=== PATIENT | male | born 1955 | race Caucasian/White ===

== ENCOUNTER 2017-02-01 10:47 | Emergency (ER) | payer BC ==
[~2017-02-01] VITALS: Ht 233.7 cm; Wt 84.5 kg
[2017-02-01 10:58] VITALS: Ht 233.7 cm; Wt 84.5 kg
[2017-02-01] MEDS ORDERED: AMOX1TAB10 PO (11:52)
[2017-02-01] MEDS ORDERED: PRED20TA PO (11:52)
[2017-02-01] MEDS ORDERED: HYDR-906 PO (11:52)
[2017-02-01] MEDS ORDERED: HYDROCODONE/APAP (5/325) TAB PO ONE (12:00)
--- NOTE | 2017-02-01 12:49 | ERD ---
ER Documentation Chief Complaint Chief Complaint swollen right side of throat x2 days HPI 61-year-old male presents emergency room with right lateral neck pain and swelling that started about 2-3 days ago. The patient's describes as sharp and achy pain as moderate and radiates to his ear and his head. He has no other associated symptoms including nasal congestion, cough, sore throat, dental pain. He denies fevers or chills. He denies trouble swallowing. ROS All systems reviewed and are negative except as per history of present illness. Medications Home Meds Active Scripts Hydrocodone/Acetaminophen ([place] 5-325 Tablet) 1 Each Tablet, 1 TAB PO Q6H Y for PAIN, #7 TAB Prov:MURTAZA YING PA-C 02/01/17 Prednisone* (Prednisone*) 20 Mg Tab, 40 MG PO DAILY for 5 Days, TAB Prov:MURTAZA YING PA-C 02/01/17 Amoxicillin/Potassium Clav (Amox-Clav 875-125 mg Tablet) 875-125 mg Tab, 1 TAB PO BID for 7 Days, #14 TAB Prov:MURTAZA YING PA-C 02/01/17 PMhx/Soc History of Surgery: No Anesthesia Reaction: No Hx Neurological Disorder: No Hx Respiratory Disorders: No Hx Cardiac Disorders: Yes Hx Psychiatric Problems: No Hx Miscellaneous Medical Probl: No Hx Alcohol Use: No Hx Substance Use: No Hx Tobacco Use: No Smoking Status: Never smoker Physical Exam Vitals Vital Signs Date Time Temp Pulse Resp B/P Pulse Ox O2 Delivery O2 Flow Rate FiO2 02/01/17 10:58 98.8 81 20 131/71 99 Physical Exam General: Well-developed, well-nourished. The patient appears in no acute distress. HEENT: Head is normocephalic, atraumatic. No scleral icterus. Right anterolateral neck has swelling, and is tender to palpation, there is no fluctuance. Lymph node is mobile. TMs are normal, oropharynx is clear, there is poor dentition but no dental abscess seen. \ Neck: Supple. Nontender. no Meningismus Lungs: Clear to auscultation. Normal air movement. Heart: Regular rate and rhythm. S1 and S2 are normal. No murmurs, gallops, or rubs. Abdomen: Nondistended. Extremities: No clubbing or cyanosis. Moving extremities x 4. No weakness. Neurologic: Alert and oriented 3. No focal deficits. Normal speech and gait. Skin: Normal turgor. No rash or lesions. Results 24 hrs Current Medications Medications (Trade) Dose Ordered Sig/Cassy Route PRN Reason Start Time Stop Time Status Last Admin Dose Admin Acetaminophen/ Hydrocodone Bitart ([place] (5/325)) 1 tab ONCE ONCE PO 02/01/17 12:00 02/01/17 12:01 DC 02/01/17 12:04 Procedures/MDM 61-year-old male presents with right-sided neck swelling, most consistent with lymphangitis. Differentials include viral versus bacterial infection, versus abscess. Suspicion at this time for a mass is low given the acute presentation , and tenderness. There is no evidence of an abscess, Saran's angina, submandibular infection. HEENT examination otherwise is normal, no evidence of otitis media, meningitis, dental infection, dental abscess, strep pharyngitis. Patient will be treated with prednisone, Augmentin as well as [place] for pain control, and was advised to recheck with the primary care doctor 1-2 days. If any worsening symptoms occur he is to return to the emergency room. If the swelling does not resolve the patient was advised that he will need to follow- up with his primary care doctor for sonographic imaging of the neck. Departure Diagnosis: Primary Impression: Lymphangitis Condition: Good Patient Instructions: MURTAZA Jose PA-C Feb 01, 2017 12:49
== END 2017-02-01 14:36 | disposition home or self-care (01) ==
LOC: E/R 10:47 → FTE 14:36
DX: I89.1 Lymphangitis (principal)
CPT/HCPCS: 99284; Z7610

== ENCOUNTER 2018-06-14 14:13 | Inpatient (IN) | payer BC ==
[~2018-06-14] VITALS: Ht 167.6 cm; Wt 86.6 kg
[~2018-06-14 14:13] MED LIST: AMOX1TAB10 PO; HYDR-4011 PO; PRED20TA PO
--- NOTE | 2018-06-14 18:32 | ERD ---
ER Documentation Chief Complaint Chief Complaint Complains of flank Hx of Kidney stones HPI 62-year-old male, history of diabetes, hypertension, hyperlipidemia and ureterolithiasis presents to the ED complaining of left flank pain. He was in his usual state of health until 2 weeks ago when he developed painless hematuria and last night was awoken at 3 AM with severe, sharp, left flank pain creating to the left lower quadrant. Pain is unrelieved by ibuprofen. No exacerbating factors. Nausea no vomiting, diarrhea or constipation. No chest pain, palpitations, shortness of breath, fevers or chills. ROS All systems reviewed and are negative except as per history of present illness. Medications Home Meds Active Scripts Hydrocodone/Acetaminophen ([place] 5-325 Tablet) 1 Each Tablet, 1 EACH PO Q6 for pain, #20 TAB 0 Refills Prov:LINDA RG MD 06/15/18 Levofloxacin* (Levaquin*) 500 Mg Tablet, 500 MG PO DAILY for UTI for 7 Days, #7 TAB Prov:LINDA RG MD 06/15/18 Levofloxacin* (Levaquin*) 500 Mg Tablet, 500 MG PO DAILY for UTI and kidney stones for 7 Days, #7 TAB Prov:LINDA RG MD 06/15/18 Reported Medications Simvastatin (Simvastatin) 20 Mg Tablet, 20 MG PO QHS, #30 TAB 06/14/18 [Cholesterol] No Conflict Check, 1 TAB PO QHS 06/14/18 Aspirin* (Aspirin* EC) 81 Mg Tablet.dr, 81 MG PO DAILY, TAB 06/14/18 Benazepril Hcl* (Benazepril Hcl*) 20 Mg Tablet, 20 MG PO DAILY, #30 TAB 06/14/18 Sitagliptin* (Januvia*) 50 Mg Tablet, 50 MG PO DAILY, #30 TAB 06/14/18 Metformin Hcl* (Metformin Hcl*) 1,000 Mg Tablet, 1000 MG PO WITH BREAKFAST DINNE, #60 TAB 06/14/18 Discontinued Scripts Hydrocodone/Acetaminophen ([place] 5-325 Tablet) 1 Each Tablet, 1 TAB PO Q6H PRN for PAIN, #7 TAB Prov:MURTAZA YING PA-C 02/01/17 Prednisone* (Prednisone*) 20 Mg Tab, 40 MG PO DAILY for 5 Days, TAB Prov:MURTAZA YING PA-C 02/01/17 Amoxicillin/Potassium Clav (Amox-Clav 875-125 mg Tablet) 875-125 mg Tab, 1 TAB PO BID for 7 Days, #14 TAB Prov:MURTAZA YING PA-C 02/01/17 Allergies Allergies: Coded Allergies: No Known Allergy (Unverified , 06/14/18) PMhx/Soc Reviewed in chart. As per HPI. History of Surgery: Yes (EC Lithotripsy) Anesthesia Reaction: No Hx Neurological Disorder: No Hx Respiratory Disorders: No Hx Cardiac Disorders: Yes (Hypertension) Hx Psychiatric Problems: No Hx Miscellaneous Medical Probl: Yes (Nephrolithiasis, ureterolithiasis, hyperlipidemia, diabetes) Hx Alcohol Use: No Hx Substance Use: No Hx Tobacco Use: No FmHx Father: [place] at 57. No family history of cancer. Physical Exam Vitals Vital Signs Date Temp Pulse Resp B/P (MAP) Pulse Ox O2 O2 Flow FiO2 Time Delivery Rate 06/14/18 87 16 127/87 100 Room Air 19:30 (100) 06/14/18 97.8 74 20 145/79 98 14:17 (101) Physical Exam Const: Moderate distress due to pain. Head: Atraumatic Eyes: Normal Conjunctiva ENT: Normal External Ears, Nose and Mouth. Neck: Full range of motion. Nontender. No lymphadenopathy. Resp: Breath sounds are equal and clear to auscultation bilaterally. No rales rhonchi or wheezes Cardio: Regular rate and rhythm, no murmurs Abd: Soft, non tender, non distended. Normal pulsations. Normal bowel sounds Skin: No petechiae or rashes Back: No midline or CVA tenderness. Ext: No cyanosis, or edema. Pulses 4+ in all extremities. Neur: Awake and alert. No focal deficit. Psych: Normal Mood and Affect Result Diagram: 06/14/18190606/14/181906 Results 24 hrs Laboratory Tests Test 06/14/18 19:07 White Blood Count 10.8 10^3/ul Red Blood Count 5.77 10^6/ul Hemoglobin 15.2 g/dl Hematocrit 46.5 % Mean Corpuscular Volume 80.6 fl Mean Corpuscular Hemoglobin 26.3 pg Mean Corpuscular Hemoglobin Concent 32.7 g/dl Red Cell Distribution Width 14.1 % Platelet Count 239 10^3/UL Mean Platelet Volume 10.2 fl Immature Granulocytes % 0.500 % Neutrophils % 68.6 % Lymphocytes % 19.4 % Monocytes % 9.2 % Eosinophils % 1.9 % Basophils % 0.4 % Nucleated Red Blood Cells % 0.0 /100WBC Immature Granulocytes # 0.050 10^3/ul Neutrophils # 7.4 10^3/ul Lymphocytes # 2.1 10^3/ul Monocytes # 1.0 10^3/ul Eosinophils # 0.2 10^3/ul Basophils # 0.0 10^3/ul Nucleated Red Blood Cells # 0.0 10^3/ul Urine Color YELLOW Urine Clarity CLEAR Urine pH 5.0 Urine Specific [place] 1.020 Urine Ketones TRACE mg/dL Urine Nitrite NEGATIVE mg/dL Urine Bilirubin NEGATIVE mg/dL Urine Urobilinogen NEGATIVE mg/dL Urine Leukocyte Esterase NEGATIVE Elias/ul Urine Microscopic RBC 16 /HPF Urine Microscopic WBC 1 /HPF Urine Hemoglobin 2+ mg/dL Urine Glucose NEGATIVE mg/dL Urine Total Protein NEGATIVE mg/dl Sodium Level 142 mmol/L Potassium Level 4.4 mmol/L Chloride Level 103 mmol/L Carbon Dioxide Level 22 mmol/L Anion Gap 17 Blood Urea Nitrogen 27 mg/dl Creatinine 1.55 mg/dl Est Glomerular Filtrat Rate mL/min 46 mL/min Glucose Level 122 mg/dl Calcium Level 9.4 mg/dl Current Medications Medications Dose Sig/Cassy Start Time Status Last (Trade) Ordered Route PRN Stop Time Admin Dose Reason Admin Sodium 500 ml @ Q1H STAT 06/14/18 DC 06/14/18 Chloride 500 mls/hr IV 18:37 19:18 06/14/18 19:36 Morphine 4 mg ONCE STAT 06/14/18 DC 06/14/18 Sulfate IV 18:37 19:17 (morphine) 06/14/18 18:42 Ondansetron 4 mg ONCE STAT 06/14/18 DC 06/14/18 HCl (Zofran IV 18:37 19:18 Inj) 06/14/18 18:42 Ketorolac 10 mg ONCE STAT 06/14/18 DC 06/14/18 Tromethamine IV 18:37 19:18 (Toradol) 06/14/18 18:42 Tamsulosin 0.4 mg ONCE ONCE 06/14/18 DC 06/14/18 HCl PO 19:00 19:36 (Flomax) 06/14/18 19:01 Ondansetron 4 mg BRIDGE ORDER 06/14/18 DC HCl (Zofran PRN IV 20:30 Inj) NAUSEA/VOMITI 06/15/18 13:32 NG 650 mg ER BRIDGE 06/14/18 DC Acetaminophen PRN PO 20:30 (Tylenol .MILD PAIN 06/15/18 13:32 Tab) 1-3 OR TEMP Procedures/MDM DOCUMENTS REVIEWED: ED nurse, prior records IMAGING: PROCEDURE: CT abdomen and pelvis without contrast. CLINICAL INDICATION: Left flank pain TECHNIQUE: CT scan of the abdomen and pelvis without contrast was performed on a multi-slice CT scanner. The patient was scanned without intravenous contrast. 3-D sagittal and coronal reformatted images were obtained from the axial source images. CTDI: 18.05 and DLP: 1224.05 One or more of the following dose reduction techniques were used: Automated exposure control. Adjustment of the mA and/or kV according to patient's size. Use of iterative reconstruction technique. DICOM images are available. COMPARISON: None. FINDINGS: Incidental images through the lung bases reveal no evidence of focal basilar consolidation or pleural effusion. The liver is somewhat low in attenuation suggesting hepatic steatosis. There is no evidence of intrahepatic biliary dilatation. The spleen, gallbladder, pancreas and adrenal glands are unremarkable There is severe left hydronephrosis secondary to a large calculus in the proximal left ureter at the level of L4. This calculus measures 7.4 mm TR by 12.8 mm AP by 18.5 mm CC. Vascular calcifications are seen on the right. No additional renal calculi are identified. There are exophytic structure is emanating from the anterior and posterior inferior left kidney that likely represent renal cysts measuring 2.8 cm and 3.6 cm. A similar exophytic lesion is seen emanating from the posterior mid right kidney measuring 3.3 cm. No significant retroperitoneal adenopathy is identified. Atherosclerotic changes are seen in the abdominal aorta without evidence of aneurysm. The stomach is distended with fluid and debris. There is no evidence of small bowel obstruction. A normal appendix is identified. There are multiple colonic diverticula without evidence of diverticulitis.. No free fluid or free intraperitoneal air is identified. Evaluation of the osseous structures reveals no acute change. IMPRESSION: 1. There is severe left hydronephrosis secondary to a large calculus in the proximal left ureter at the level of L4. This calculus measures 7.4 mm TR by 12.8 mm AP by 18.5 mm CC 2. There are exophytic structure is emanating from the anterior and posterior inferior left kidney that likely represent renal cysts measuring 2.8 cm and 3.6 cm. A similar exophytic lesion is seen emanating from the posterior mid right kidney measuring 3.3 cm. 3. There are multiple colonic diverticula without evidence of diverticulitis. 4. Hepatic steatosis. RPTAT:AAJJ Josh Rivera Physician Date Time Electronically viewed and signed by Josh Rivera Physician on 06/14/2018 19:22 [facility]-year-old male, history of diabetes, hypertension, hyperlipidemia and ureterolithiasis presents to the ED for evaluation of hematuria and left flank pain. CBC unremarkable for leukocytosis, anemia or thrombocytosis. Chemistry reveal elevated Bun/Cr consistent with renal insufficiency but no electrolyte abnormalities and hyperglycemia with anion gap acidosis. U/A positive for hematuria but no pyuria or infection. CT findings as above reveal an impressively large left ureteral calculus at L4 level with severe obstructive uropathy and hydronephrosis. Pain controlled with IV opiates. Flomax given. No UTI or pyelonephritis and antibiotics deferred. Urology consul tori. Admit to med/surg. Counseled patient and family regarding diagnostic workup, diagnosis and need for admission. CALLS/CONSULTS: Dr Pierson will consult. CARE TRANSFERRED: Time:2029. Dr Pham. Departure Diagnosis: Primary Impression: Acute left flank pain Additional Impressions: Ureterolithiasis Obstructed, uropathy Hydronephrosis, left Renal colic on left side Diabetes mellitus type 2 in obese Condition: Serious EVA CLARK MD Jun 14, 2018 18:32
[2018-06-14] MEDS ORDERED: ONDANSETRON 4 MG INJ IV STA (18:37)
[2018-06-14] MEDS ORDERED: SOD CHLORIDE 0.9% 500 ML IV STA (18:37)
[2018-06-14] MEDS ORDERED: KETOROLAC 15 MG INJ IV STA (18:37)
[2018-06-14] MEDS ORDERED: morphine 4 MG/ML VIAL IV STA (18:37)
[2018-06-14] MEDS ORDERED: TAMSULOSIN (SR) 0.4 MG CAP PO ONE (19:00)
[2018-06-14] MEDS ORDERED: ASPI-817 PO (20:02)
[2018-06-14] MEDS ORDERED: METF100010 PO (20:02)
[2018-06-14] MEDS ORDERED: SITA50TA2 PO (20:02)
[2018-06-14] MEDS ORDERED: BENA20TA4 PO (20:02)
[2018-06-14] MEDS ORDERED: CHOLESTEROL PO (20:03)
[2018-06-14] MEDS ORDERED: ONDANSETRON 4 MG INJ IV PRN ×2 (20:30→23:00)
[2018-06-14] MEDS ORDERED: ACETAMINOPHEN 325 MG TAB PO PRN (20:30)
[2018-06-14 22:26] VITALS: BP 137/73; PULSE 77; RESP 18
[2018-06-14] MEDS ORDERED: SIMV20TA2 PO (22:37)
[2018-06-14] MEDS ORDERED: CEFTRIAXONE 1 GM/50 ML (PMX) 50 ML IVPB SCH (23:00)
[2018-06-14] MEDS ORDERED: morphine 2 MG INJ IV PRN (23:00)
[2018-06-14] MEDS ORDERED: ZOLPIDEM 5 MG TAB PO PRN (23:00)
[2018-06-14] MEDS ORDERED: morphine 4 MG/ML VIAL IV PRN (23:00)
[2018-06-14 23:03] VITALS: Ht 167.6 cm; Wt 86.6 kg
[2018-06-14] MEDS ORDERED: GLUCOSE GEL 15 GRAM TUBE PO PRN ×2 (23:30)
[2018-06-14] MEDS ORDERED: GLUCOSE GEL 15 GRAM TUBE BUCCAL PRN (23:30)
[2018-06-14] MEDS ORDERED: GLUCAGON 1 MG INJ IM PRN (23:30)
[2018-06-14] MEDS ORDERED: DEXTROSE 50% 50 ML SYRINGE IV PRN ×2 (23:30)
[2018-06-15] VITALS (17 sets, daily range): BP systolic 108–148; BP diastolic 57–91; PULSE 66–83; RESP 12–23
[2018-06-15] MEDS: SOD CHLORIDE 0.9% 1,000 ML IV SCH ×3 (00:19→21:22)
[2018-06-15] MEDS: INSULIN ASPART [NOVOLOG] 3 ML PEN SC SCH ×4 (00:50→17:47)
[2018-06-15] MEDS ORDERED: ACCU-CHEK XX SCH (02:00)
--- NOTE | 2018-06-15 08:54 | CONS ---
Assessment/Plan Assessment/Plan Hospital Course (Demo Recall) 62-year-old male, history of diabetes, hypertension, hyperlipidemia and ureterolithiasis presented to the ED complaining of left flank pain. He was in his usual state of health until 2 weeks ago when he developed painless hematuria and last night was awoken at 3 AM with severe, sharp, left flank pain radiating to the left lower quadrant. Pain was unrelieved by ibuprofen. No exacerbating factors. He had nausea but no vomiting, diarrhea or constipation. No chest pain, palpitations, shortness of breath, fevers or chills. He has had extracorporeal shockwave lithotripsy to a left renal stone about 10 years ago. And he states he did pass multiple small stones before and he has given them to his primary care doctor for analysis but he does not know the results. On the physical exam he does have left flank tenderness and left side of the abdomen is tender. I did review the CT scan with him and his son who was at his bedside I did show them the pictures and discussed with them the plan which would be to do a cystoscopy and insert a left ureteral JJ stent. And at a later date he will need either a ureteroscopy with laser lithotripsy or extracorporeal shockwave lithotripsy depending on the location of the stone at that time. The patient as well as his son did understand the procedure and they are agreeable to proceed. Consultation Date/Type/Reason Admit Date/Time Jun 14, 2018 at 20:31 Date of Consultation: Jun 15, 2018 Type of Consult Urology Reason for Consultation Left upper ureteral stone Requesting Provider: NADIA JAY MD Date/Time of Note DATE: 06/15/18 TIME: 08:45 Hx of Present Illness 62-year-old male, history of diabetes, hypertension, hyperlipidemia and ureterolithiasis presented to the ED complaining of left flank pain. He was in his usual state of health until 2 weeks ago when he developed painless hematuria and last night was awoken at 3 AM with severe, sharp, left flank pain radiating to the left lower quadrant. Pain was unrelieved by ibuprofen. No exacerbating factors. He had nausea but no vomiting, diarrhea or constipation. No chest pain, palpitations, shortness of breath, fevers or chills. He has had extracorporeal shockwave lithotripsy to a left renal stone about 10 years ago. And he states he did pass multiple small stones before and he has given them to his primary care doctor for analysis but he does not know the results. Constitutional: no complaints Eyes: no complaints ENT: no complaints Respiratory: no complaints; No shortness of breath Cardiovascular: no complaints Gastrointestinal: pain (Left side of abdomen) Genitourinary: flank pain (Left side), hematuria Musculoskeletal: no complaints Skin: no complaints Neurologic: no complaints Endocrine: no complaints Lymphatic: no complaints Immunologic: no complaints Past Medical History Medical History: diabetes, high cholesterol, hypertension, other (Kidney stones) Home Meds Reported Medications Simvastatin (Simvastatin) 20 Mg Tablet, 20 MG PO QHS, #30 TAB 06/14/18 [Cholesterol] No Conflict Check, 1 TAB PO QHS 06/14/18 Aspirin* (Aspirin* EC) 81 Mg Tablet.dr, 81 MG PO DAILY, TAB 06/14/18 Benazepril Hcl* (Benazepril Hcl*) 20 Mg Tablet, 20 MG PO DAILY, #30 TAB 06/14/18 Sitagliptin* (Januvia*) 50 Mg Tablet, 50 MG PO DAILY, #30 TAB 06/14/18 Metformin Hcl* (Metformin Hcl*) 1,000 Mg Tablet, 1000 MG PO WITH BREAKFAST DINNE, #60 TAB 06/14/18 Discontinued Scripts Hydrocodone/Acetaminophen ([place] 5-325 Tablet) 1 Each Tablet, 1 TAB PO Q6H PRN for PAIN, #7 TAB Prov:MURTAZA YING PA-C 02/01/17 Prednisone* (Prednisone*) 20 Mg Tab, 40 MG PO DAILY for 5 Days, TAB Prov:MURTAZA YING PA-C 02/01/17 Amoxicillin/Potassium Clav (Amox-Clav 875-125 mg Tablet) 875-125 mg Tab, 1 TAB PO BID for 7 Days, #14 TAB Prov:MURTAZA YING PA-C 02/01/17 Medications Current Medications Ondansetron HCl (Zofran Inj) 4 mg BRIDGE ORDER PRN IV NAUSEA/VOMITING; Start 06/14/18 at 20:30; Stop 06/15/18 at 20:29 Acetaminophen (Tylenol Tab) 650 mg ER BRIDGE PRN PO .MILD PAIN 1-3 OR TEMP; Start 06/14/18 at 20:30; Stop 06/15/18 at 20:29 Sodium Chloride 1,000 ml @ 100 mls/hr Q10H IV Last administered on 3/12/19at 00:19; Admin Dose 100 MLS/HR; Start 06/14/18 at 23:00 Morphine Sulfate (morphine) 2 mg Q4H PRN IV PAIN LEVEL 4-7; Start 06/14/18 at 23:00 Morphine Sulfate (morphine) 4 mg Q4H PRN IV SEVERE PAIN LEVEL 7-10 Last administered on 06/15/18at 07:41; Admin Dose 4 MG; Start 06/14/18 at 23:00 Ondansetron HCl (Zofran Inj) 4 mg Q4H PRN IV NAUSEA AND/OR VOMITING; Start 06/14/18 at 23:00 Zolpidem Tartrate (Ambien) 5 mg HS PRN PO INSOMNIA; Start 06/14/18 at 23:00 Ceftriaxone Sodium 50 ml @ 100 mls/hr Q24H IVPB Last administered on 06/15/18at 00:19; Admin Dose 100 MLS/HR; Start 06/14/18 at 23:00 Diagnostic Test (Pha) (Accu-Chek) 1 ea 02 XX ; Start 06/15/18 at 02:00 Insulin Aspart (Novolog Insulin Pen) NOVOLOG *MILD* ALGORI... Q6 SC Last administered on 06/15/18at 05:53; Admin Dose 1 UNIT; Start 06/15/18 at 00:00 Miscellaneous Information 1 ea NOTE XX ; Start 06/14/18 at 23:30 Glucose (Glutose) 15 gm Q15M PRN PO DECREASED GLUCOSE; Start 06/14/18 at 23:30 Glucose (Glutose) 22.5 gm Q15M PRN PO DECREASED GLUCOSE; Start 06/14/18 at 23:30 Dextrose (D50w Syringe) 25 ml Q15M PRN IV DECREASED GLUCOSE; Start 06/14/18 at 23:30 Dextrose (D50w Syringe) 50 ml Q15M PRN IV DECREASED GLUCOSE; Start 06/14/18 at 23:30 Glucagon (Glucagen) 1 mg Q15M PRN IM DECREASED GLUCOSE; Start 06/14/18 at 23:30 Glucose (Glutose) 15 gm Q15M PRN BUCCAL DECREASED GLUCOSE; Start 06/14/18 at 23:30 Atorvastatin Calcium (Lipitor) 10 mg DAILY@21 PO ; Start 06/15/18 at 21:00 Allergies: Coded Allergies: No Known Allergy (Unverified , 06/14/18) Past Surgical History Past Surgical Hx: other (Left extracorporeal shockwave lithotripsy) Social History Alcohol Use: occasionally Smoking Status: Never smoker Drug Use: none Exam/Review of Systems Exam Vitals Vital Signs Date Temp Pulse Resp B/P (MAP) Pulse Ox O2 O2 Flow FiO2 Time Delivery Rate 06/15/18 97.8 68 18 108/57 96 07:44 (74) 06/14/18 Room Air 21:39 Intake and Output 06/14/18 06/14/18 06/15/18 1515:00 23:00 07:00 IntakeIntake Total 600 ml OutputOutput Total 200 ml BalanceBalance 400 ml Constitutional: alert Psych: no complaints Head: normocephalic Eyes: nl conjunctiva ENMT: nl external ears & nose Neck: supple Respiratory: normal air movement; No wheezing Cardiovascular: regular rate and rhythm; No jugular venous distention (JVD) Gastrointestinal: soft Genitourinary - Male: CVA tenderness (Left side) Extremities: No calf tenderness Neurological: nl mental status Skin: nl turgor Results Result Diagram: 06/14/18190606/14/181906 Results 24hrs Laboratory Tests Test 06/14/18 19:07 06/15/18 00:50 06/15/18 05:50 06/15/18 07:46 White Blood Count 10.8 Red Blood Count 5.77 Hemoglobin 15.2 Hematocrit 46.5 Mean Corpuscular 80.6 L Volume Mean Corpuscular 26.3 L Hemoglobin Mean Corpuscular 32.7 Hemoglobin Concent Red Cell 14.1 Distribution Width Platelet Count 239 Mean Platelet Volume 10.2 Immature 0.500 H Granulocytes % Neutrophils % 68.6 Lymphocytes % 19.4 Monocytes % 9.2 Eosinophils % 1.9 Basophils % 0.4 Nucleated Red Blood 0.0 Cells % Immature 0.050 H Granulocytes # Neutrophils # 7.4 Lymphocytes # 2.1 Monocytes # 1.0 H Eosinophils # 0.2 Basophils # 0.0 Nucleated Red Blood 0.0 Cells # Urine Color YELLOW Urine Clarity CLEAR Urine pH 5.0 Urine Specific 1.020 [place] Urine Ketones TRACE A Urine Nitrite NEGATIVE Urine Bilirubin NEGATIVE Urine Urobilinogen NEGATIVE Urine Leukocyte NEGATIVE Esterase Urine Microscopic 16 H RBC Urine Microscopic 1 WBC Urine Hemoglobin 2+ H Urine Glucose NEGATIVE Urine Total Protein NEGATIVE Sodium Level 142 Potassium Level 4.4 Chloride Level 103 Carbon Dioxide Level 22 Anion Gap 17 H Blood Urea Nitrogen 27 H Creatinine 1.55 H Est Glomerular 46 L Filtrat Rate mL/min Glucose Level 122 Calcium Level 9.4 Bedside Glucose 233 H 160 196 Test 06/15/18 07:54 Bedside Glucose [address] scan of the abdomen and pelvis: 1. There is severe left hydronephrosis secondary to a large calculus in the proximal left ureter at the level of L4. This calculus measures 7.4 mm TR by 12.8 mm AP by 18.5 mm CC 2. There are exophytic structure is emanating from the anterior and posterior inferior left kidney that likely represent renal cysts measuring 2.8 cm and 3.6 cm. A similar exophytic lesion is seen emanating from the posterior mid right kidney measuring 3.3 cm. 3. There are multiple colonic diverticula without evidence of diverticulitis. 4. Hepatic steatosis. Medications Medication Current Medications Ondansetron HCl (Zofran Inj) 4 mg BRIDGE ORDER PRN IV NAUSEA/VOMITING; Start 06/14/18 at 20:30; Stop 06/15/18 at 20:29 Acetaminophen (Tylenol Tab) 650 mg ER BRIDGE PRN PO .MILD PAIN 1-3 OR TEMP; Start 06/14/18 at 20:30; Stop 06/15/18 at 20:29 Sodium Chloride 1,000 ml @ 100 mls/hr Q10H IV Last administered on 06/15/18at 00:19; Admin Dose 100 MLS/HR; Start 06/14/18 at 23:00 Morphine Sulfate (morphine) 2 mg Q4H PRN IV PAIN LEVEL 4-7; Start 06/14/18 at 23:00 Morphine Sulfate (morphine) 4 mg Q4H PRN IV SEVERE PAIN LEVEL 7-10 Last administered on 06/15/18at 07:41; Admin Dose 4 MG; Start 06/14/18 at 23:00 Ondansetron HCl (Zofran Inj) 4 mg Q4H PRN IV NAUSEA AND/OR VOMITING; Start 06/14/18 at 23:00 Zolpidem Tartrate (Ambien) 5 mg HS PRN PO INSOMNIA; Start 06/14/18 at 23:00 Ceftriaxone Sodium 50 ml @ 100 mls/hr Q24H IVPB Last administered on 06/15/18at 00:19; Admin Dose 100 MLS/HR; Start 06/14/18 at 23:00 Diagnostic Test (Pha) (Accu-Chek) 1 ea 02 XX ; Start 06/15/18 at 02:00 Insulin Aspart (Novolog Insulin Pen) NOVOLOG *MILD* ALGORI... Q6 SC Last administered on 06/15/18at 05:53; Admin Dose 1 UNIT; Start 06/15/18 at 00:00 Miscellaneous Information 1 ea NOTE XX ; Start 06/14/18 at 23:30 Glucose (Glutose) 15 gm Q15M PRN PO DECREASED GLUCOSE; Start 06/14/18 at 23:30 Glucose (Glutose) 22.5 gm Q15M PRN PO DECREASED GLUCOSE; Start 06/14/18 at 23:30 Dextrose (D50w Syringe) 25 ml Q15M PRN IV DECREASED GLUCOSE; Start 06/14/18 at 23:30 Dextrose (D50w Syringe) 50 ml Q15M PRN IV DECREASED GLUCOSE; Start 06/14/18 at 23:30 Glucagon (Glucagen) 1 mg Q15M PRN IM DECREASED GLUCOSE; Start 06/14/18 at 23:30 Glucose (Glutose) 15 gm Q15M PRN BUCCAL DECREASED GLUCOSE; Start 06/14/18 at 23:30 Atorvastatin Calcium (Lipitor) 10 mg DAILY@21 PO ; Start 06/15/18 at 21:00 LAURE GORDON MD Jun 15, 2018 08:54
--- NOTE | 2018-06-15 09:48 | PREAC ---
Date/Time of Note Date/Time of Note DATE: 06/15/18 TIME: 09:47 Anesthesia Eval and Record Evaluation Time Pre-Procedure Interview DATE: 06/15/18 TIME: 09:47 Age 62 Sex male NPO: 8 hrs Preoperative diagnosis left hydronpehrosis, calculus Planned procedure cystoscopy, left ureteral JJ stent Past Medical History Past Medical History: Includes Cardio: HTN, Dyslipidemia Endo: Diabetes Renal: CARLOS (creatinine 1.5), Other (kidney stones, hx left eswl 10 years ago) Hepatic: Other (hepatic steatosis) GI: Other (diverticulitis) Surgery & Anesthesia Issues No known issue Meds Anticoagulation: Yes Beta Nicolasa within 24 hr: No Reason Beta Nicolasa not given: Pt. not on B-Nicolasa Reported Medications Simvastatin (Simvastatin) 20 Mg Tablet, 20 MG PO QHS, #30 TAB 06/14/18 [Cholesterol] No Conflict Check, 1 TAB PO QHS 06/14/18 Aspirin* (Aspirin* EC) 81 Mg Tablet.dr, 81 MG PO DAILY, TAB 06/14/18 Benazepril Hcl* (Benazepril Hcl*) 20 Mg Tablet, 20 MG PO DAILY, #30 TAB 06/14/18 Sitagliptin* (Januvia*) 50 Mg Tablet, 50 MG PO DAILY, #30 TAB 06/14/18 Metformin Hcl* (Metformin Hcl*) 1,000 Mg Tablet, 1000 MG PO WITH BREAKFAST DINNE, #60 TAB 06/14/18 Discontinued Scripts Hydrocodone/Acetaminophen ([place] 5-325 Tablet) 1 Each Tablet, 1 TAB PO Q6H PRN for PAIN, #7 TAB Prov:MURTAZA YING PA-C 02/01/17 Prednisone* (Prednisone*) 20 Mg Tab, 40 MG PO DAILY for 5 Days, TAB Prov:MURTAZA YING PA-C 02/01/17 Amoxicillin/Potassium Clav (Amox-Clav 875-125 mg Tablet) 875-125 mg Tab, 1 TAB PO BID for 7 Days, #14 TAB Prov:MURTAZA YING PA-C 02/01/17 Current Medications Ondansetron HCl (Zofran Inj) 4 mg BRIDGE ORDER PRN IV NAUSEA/VOMITING; Start 06/14/18 at 20:30; Stop 06/15/18 at 20:29 Acetaminophen (Tylenol Tab) 650 mg ER BRIDGE PRN PO .MILD PAIN 1-3 OR TEMP; Start 06/14/18 at 20:30; Stop 06/15/18 at 20:29 Sodium Chloride 1,000 ml @ 100 mls/hr Q10H IV Last administered on 06/15/18at 00:19; Admin Dose 100 MLS/HR; Start 06/14/18 at 23:00 Morphine Sulfate (morphine) 2 mg Q4H PRN IV PAIN LEVEL 4-7; Start 06/14/18 at 23:00 Morphine Sulfate (morphine) 4 mg Q4H PRN IV SEVERE PAIN LEVEL 7-10 Last administered on 06/15/18at 07:41; Admin Dose 4 MG; Start 06/14/18 at 23:00 Ondansetron HCl (Zofran Inj) 4 mg Q4H PRN IV NAUSEA AND/OR VOMITING; Start 06/14/18 at 23:00 Zolpidem Tartrate (Ambien) 5 mg HS PRN PO INSOMNIA; Start 06/14/18 at 23:00 Ceftriaxone Sodium 50 ml @ 100 mls/hr Q24H IVPB Last administered on 06/15/18at 00:19; Admin Dose 100 MLS/HR; Start 06/14/18 at 23:00 Diagnostic Test (Pha) (Accu-Chek) 1 ea 02 XX ; Start 06/15/18 at 02:00 Insulin Aspart (Novolog Insulin Pen) NOVOLOG *MILD* ALGORI... Q6 SC Last administered on 06/15/18at 05:53; Admin Dose 1 UNIT; Start 06/15/18 at 00:00 Miscellaneous Information 1 ea NOTE XX ; Start 06/14/18 at 23:30 Glucose (Glutose) 15 gm Q15M PRN PO DECREASED GLUCOSE; Start 06/14/18 at 23:30 Glucose (Glutose) 22.5 gm Q15M PRN PO DECREASED GLUCOSE; Start 06/14/18 at 23:30 Dextrose (D50w Syringe) 25 ml Q15M PRN IV DECREASED GLUCOSE; Start 06/14/18 at 23:30 Dextrose (D50w Syringe) 50 ml Q15M PRN IV DECREASED GLUCOSE; Start 06/14/18 at 23:30 Glucagon (Glucagen) 1 mg Q15M PRN IM DECREASED GLUCOSE; Start 06/14/18 at 23:30 Glucose (Glutose) 15 gm Q15M PRN BUCCAL DECREASED GLUCOSE; Start 06/14/18 at 23:30 Atorvastatin Calcium (Lipitor) 10 mg DAILY@21 PO ; Start 06/15/18 at 21:00 Meds reviewed: Yes Allergies Coded Allergies: No Known Allergy (Unverified , 06/14/18) Allergies Reviewed: Yes Labs/Studies Labs Reviewed: Reviewed by anesthesiologist Result Diagram: 06/14/18190606/14/181906 Laboratory Tests 06/14/18 19:07 test: N/A Studies: ECG (NSR), CXR Pre-procedure Exam Last vitals Vital Signs Date Temp Pulse Resp B/P (MAP) Pulse Ox O2 O2 Flow FiO2 Time Delivery Rate 06/15/18 97.8 68 18 108/57 96 07:44 (74) 06/14/18 Room Air 21:39 Airway: Adequate mouth opening, Adequate thyromental dist Mallampati: Mallampati II Teeth: Normal Lung: Normal Heart: Normal ASA Physical Status ASA physical status: 3 Emergency: E Planned Anesthetic General/MAC: LMA Planned Pain Management Parenteral pain med, Other neuraxial med Pre-operative Attestations Prior to commencing anesthesia and surgery, the patient was re-evaluated, there was verification of: *The patient's identity *The results of appropriate recent lab work and preoperative vital signs *The above evaluation not changing prior to induction *Anesthetic plan, risk benefits, alternative and complications discussed with patient/family; questions answered; patient/family understands, accepts and wishes to proceed. MAULIK MARAVILLA Jun 15, 2018 09:48
--- NOTE | 2018-06-15 10:21 | HP ---
DATE OF ADMISSION: 06/14/2018 CHIEF COMPLAINT: Left flank pain. HISTORY OF PRESENT ILLNESS: A 62-year-old gentleman with a history of hypertension, type 2 diabetes mellitus, hyperlipidemia, and kidney stones, presented to emergency room with complaint of left flank pain, left-sided abdominal pain and gross hematuria. The patient reports having on and off hematuri a for several weeks. He woke up at 3 o'clock in the morning with severe sharp left flank pain. He d enies any fevers or chills. No dysuria. Initial evaluation included a CAT scan of abdomen and pelvis. This showed 7.5 mm stone in the left u reter with associated hydronephrosis. The urine was not contaminated. PAST MEDICAL HISTORY: 1. Hypertension. 2. Type 2 diabetes mellitus. 3. Hyperlipidemia. 4. History of ureterolithiasis. MEDICATIONS PRIOR TO ADMISSION: 1. Aspirin. 2. Benazepril. 3. Januvia. 4. Metformin. SOCIAL HISTORY: The patient denies tobacco use and drinks alcohol on social occasions. PHYSICAL EXAMINATION: GENERAL: Well-developed, well-nourished male who is in no apparent distress. VITAL SIGNS: Stable. He is afebrile. HEENT: Extraocular muscles intact. Pupils equal and reactive to light bilaterally. Sclerae are ani cteric. Oropharynx is clear and moist. NECK: Supple, no JVD, no carotid bruits. LUNGS: Clear to auscultation bilaterally. CARDIAC: Regular rate and rhythm. No murmurs, rubs or gallops. ABDOMEN: Soft, obese. Mild left-sided tenderness to palpation. BACK: No CVA tenderness. EXTREMITIES: No clubbing, cyanosis, or edema. NEUROLOGICAL: Nonfocal. LABORATORY DATA: White blood cell count 10.8, hemoglobin 15.2, platelet count 239,000. BUN is 27, c reatinine 1.55. Calcium is 9.4. IMAGING STUDY: CAT scan showed severe left hydronephrosis secondary to large calculus in the proxima l left ureter at the level of L4. Calculus measures 7.4 mm x 0.8 mm x 18.5 mm. ASSESSMENT: 1. A 62-year-old male presenting with severe left flank pain. He was found to have a large left ure teral stone with associated severe hydronephrosis. 2. History of nephrolithiasis in the past. 3. Hypertension. 4. Type 2 diabetes mellitus. 5. Hyperlipidemia. 6. Stage III chronic kidney disease. PLAN: 1. Placing med/surg observation. 2. IV fluid hydration. 3. Pain control. 4. N.p.o. 5. Proceed with ureteral stent placement and possible extracorporeal shock wave lithotripsy. 6. Urology followup is appreciated. 7. Discharge planning following the procedure. Dictated By: NADIA GUSTAFSON/ANTONELLA Conf#: [id number] DID#: [id number] CC: NADIA JAY MD; LAURE GORDON MD;*EndCC*
[2018-06-15] MEDS ORDERED: FENTAnyl 50 MCG/ML VIAL ONE (12:38)
[2018-06-15] MEDS ORDERED: MIDAZOLAM 1 MG/ML 2 ML INJ ONE (12:38)
[2018-06-15] MEDS ORDERED: LIDOCAINE 2% 20 ML UROJET SYRINGE ONE (12:41)
[2018-06-15] MEDS ORDERED: ETOMIDATE 20 MG INJ ONE (13:16)
[2018-06-15] MEDS ORDERED: LIDOCAINE 2% (SDV) 5 ML INJ ONE (13:16)
[2018-06-15] MEDS ORDERED: CEFAZOLIN 1 GM INJ ONE (13:16)
[2018-06-15] MEDS ORDERED: PROPOFOL 20 ML ONE (13:16)
[2018-06-15] MEDS ORDERED: ONDANSETRON 4 MG INJ ONE (13:16)
[2018-06-15] MEDS ORDERED: METOCLOPRAMIDE 10 MG INJ IV PRN (13:30)
[2018-06-15] MEDS ORDERED: MEPERIDINE 25 MG INJ IV PRN (13:30)
[2018-06-15] MEDS ORDERED: DIPHENHYDRAMINE 50 MG INJ IV PRN (13:30)
[2018-06-15] MEDS ORDERED: HYDROmorphONE 1 MG/5 ML IV SYRINGE IV PRN ×2 (13:30)
[2018-06-15] MEDS ORDERED: hydrALAzine 20 MG INJ IV PRN (13:30)
[2018-06-15] MEDS ORDERED: ONDANSETRON 4 MG INJ IV PRN (13:30)
[2018-06-15] MEDS ORDERED: FENTAnyl 50 MCG/ML VIAL IV PRN (13:30)
--- NOTE | 2018-06-15 13:30 | PAC ---
Date/Time of Note Date/Time of Note DATE: 06/15/18 TIME: 13:29 Post-Anesthesia Notes Post-Anesthesia Note Last documented vital signs Vital Signs Date Temp Pulse Resp B/P (MAP) Pulse Ox O2 O2 Flow FiO2 Time Delivery Rate 06/15/18 97.8 68 18 108/57 96 07:44 (74) 06/14/18 Room Air 21:39 Activity: WNL Respiratory function: WNL Cardiovascular function: WNL Mental status: Baseline Pain reasonably controlled: Yes Hydration appropriate: Yes Nausea/Vomiting absent: Yes Comments BP:134/67, P;78, Spo2:100%, T:98,8 KANDICE MCWILLIAMS MD Jun 15, 2018 13:30
--- NOTE | 2018-06-15 13:36 | OPR ---
Date/Time of Note Date/Time of Note DATE: 06/15/18 TIME: 13:29 Operative Report Procedure Date: Jun 15, 2018 Preoperative Diagnosis Large left upper ureteral stone with left hydronephrosis Postoperative Diagnosis Same Operation/Procedure Performed Cystoscopy, insertion of left ureteral JJ stent 6 [place] by 22 cm long. 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 Patient was positioned in the lithotomy position. Timeout was done and the patient was identified by his name, birthdate, the procedure on the side of the procedure is. Patient was given 2 g of Ancef IV at the start of the procedure. #21 Chadian cystoscope sheath was introduced under direct vision through the penile urethra all the way to the bladder. Spot films were taken between the bladder and the kidney. The left upper ureteral stone was visualized and it is faintly radiopaque. I then cannulated the left ureteral orifice with a 5 Chadian open ended ureteral catheter and advanced it to the level of the stone. Then I used a mixture of 2% lidocaine jelly with equal amount of normal saline and injected that in the left ureter just below the stone to lubricate that area and facilitate the passage of the zip wire. I then inserted the 0.035 zip wire through the 5 Chadian open ended and advanced it to the level of the stone. First it would not advance because of the stone obstructing the ureter. But with some manipulation it did go up to the kidney. Then I advanced the open ended on it and then removed the wire and aspirated urine from the kidney for culture and sensitivity. A hydronephrotic drip was noticed. I then reintroduced the zip wire and removed the open ended. Then I advanced a 6 Chadian by 22 cm long JJ stent on the wire. I had it proximal and coiling in the kidney and the distal end coiling into the bladder. The bladder was then emptied and the patient was transferred to the recovery room in a stable and satisfactory condition. LAURE GORDON MD Jun 15, 2018 13:36
--- NOTE | 2018-06-15 15:25 | RADRPT ---
Vent Rate: 69 bpm RR Interval: 0 msec DE Interval: 148 msec QRS Duration: 80 msec QT Interval: 390 msec QTC Interval: 417 msec P-R-T [place]: 65 - 29 - 40 degrees Normal sinus rhythm Low voltage QRS Borderline ECG Electronically Signed By: Zi Kothari
[2018-06-15] MEDS ORDERED: ATORVASTATIN 10 MG TAB PO SCH (21:00)
[2018-06-15] MEDS ORDERED: LEVO500T48 PO ×2 (21:04→21:08)
[2018-06-15] MEDS ORDERED: HYDR-4011 PO (21:08)
[2018-06-15] MEDS ORDERED: LEVOFLOXACIN 500 MG TAB PO ONE (21:30)
--- NOTE | 2018-06-16 18:56 | DS ---
DATE OF ADMISSION: 06/14/2018 DATE OF DISCHARGE: 06/15/2018 DISCHARGE DIAGNOSES: 1. A 62-year-old male with left ureteral stone and associated hydronephrosis. 2. Status post cystoscopy and insertion of left ureteral stent. 3. Type 2 diabetes mellitus. 4. Hypertension. 5. Hyperlipidemia. HOSPITAL COURSE: A 62-year-old very pleasant male with history of nephrolithiasis, presented to [facility] room with complaint of severe left-sided abdominal pain and left flank pain. CAT scan of abdom en and pelvis showed severe left hydronephrosis secondary to large calculus in the proximal left at t he level of L4. The patient was started on IV fluid hydration and received pain control then he was seen in consultation by Dr. Pierson. The patient underwent cystoscopy and insertion of left ureteral stent. There was no evidence of a UTI. The patient was discharged home in a stable condition. He was prescribed Levaquin and Omak. The patient will follow up with his PCP and his own urologist in 1 week. Dictated By: NADIA JAY MD SK/NTS Conf#: [id number] DID#: [id number] CC: LAURE PIERSON MD;*EndCC*
== END 2018-06-15 22:00 | disposition home or self-care (01) | DRG 661 ==
LOC: E/R 14:13 → 2NE 20:31
PROVIDERS: ADMIT Internal Medicine; ATTEND Internal Medicine
PROC: 0T778DZ Dilation of Left Ureter with Intraluminal Device, Via Natural or Artificial Opening Endoscopic (ICD-10-PCS; principal; 2018-06-15 12:30)
DX: N13.2 Hydronephrosis with renal and ureteral calculous obstruction (principal); N17.9 Acute kidney failure, unspecified; I10 Essential (primary) hypertension; E11.9 Type 2 diabetes mellitus without complications; E78.5 Hyperlipidemia, unspecified; Z79.82 Long term (current) use of aspirin; Z79.84 Long term (current) use of oral hypoglycemic drugs
CPT/HCPCS: 36415; 71045; 74018; 74176; 74430; 80048; 81001; 82962; 85025; 85610; 85730; 87086; 93005; 96374; 96375; C2617; J0690; J0696; J1815; J1885; J2250; J2270; J2405; J3010; J7030; J7040